=== PATIENT | female | born 1975 | race Caucasian/White ===

== ENCOUNTER → 2024-01-19 06:26 | Day surgery (SDC) | payer BC, SELFPAY | LOC: GI 06:26 | PROVIDERS: ATTENDING PHYSICIAN Internal Medicine Gastroenterology; FAMILY PHYSICIAN Family Medicine Adult Medicine | DX: Z12.11 Encounter for screening for malignant neoplasm of colon (principal); K64.0 First degree hemorrhoids | CPT/HCPCS: G0121 ==

== ENCOUNTER → 2024-04-03 09:50 | Outpatient (REF) | payer BC, SELFPAY | LOC: PAVMRI 09:50 | PROVIDERS: ATTENDING PHYSICIAN Family Medicine Adult Medicine | DX: M47.897 Other spondylosis, lumbosacral region (principal) | CPT/HCPCS: 72148 ==

== ENCOUNTER → 2024-08-28 06:24 | Outpatient (REF) | payer BC, SELFPAY | LOC: PAVMRI 06:24 | PROVIDERS: ATTENDING PHYSICIAN Psychiatry & Neurology Neurology; FAMILY PHYSICIAN Family Medicine Adult Medicine | DX: R29.2 Abnormal reflex (principal) | CPT/HCPCS: 70551 ==

== ENCOUNTER → 2024-09-02 13:01 | Outpatient (REF) | payer BC, SELFPAY | LOC: PAVMRI 13:01 | PROVIDERS: ATTENDING PHYSICIAN Orthopaedic Surgery; FAMILY PHYSICIAN Family Medicine Adult Medicine | DX: M51.34 Other intervertebral disc degeneration, thoracic region (principal); M50.30 Other cervical disc degeneration, unspecified cervical region; M54.16 Radiculopathy, lumbar region | CPT/HCPCS: 72141; 72146 ==